=== PATIENT | male | born 1985 | race Caucasian/White ===

== ENCOUNTER 2016-09-20 17:02 | Emergency (ER) | payer SELFPAY ==
[~2016-09-20] VITALS: Ht 170.2 cm; Wt 63.0 kg
[~2016-09-20 17:02] MED LIST: ALPR1 PO; DILA8TAB4 PO
[2016-09-20 17:10] VITALS: BP 126/76; PULSE 90; RESP 16; TEMP 97.8; O2SAT 95
--- NOTE | 2016-09-20 17:53 | PD ---
HPI Chief Complaint: Skin Problem Time Seen by Provider: 17:33 Travel History International Travel<30 days: No Contact w/Intl Traveler<30days: No Traveled to known affect area: No History of Present Illness HPI Patient is a 31-year-old male presents emergency primary for evaluation of a burn to his right long finger. Patient states he was drinking and smoking some marijuana last night and doesn't know exactly how it happened. He only realize he had some pain this morning when he put his hand in the pockets. Denies a fever double pain nausea vomiting diarrhea denies any other atkins. Patient states he has jammed his finger in the past playing basketball and has had limited range of motion of his PIP joint since then. This is been chronic for him for Rai 6 months. [facility] Past Medical History Anxiety: Yes Diminished Hearing: No Musculoskeletal: Yes (BACK PAIN/ CHRONIC NECK PAIN) Social History Alcohol Use: Yes (WEEKLY) Tobacco Use: Yes (1 PPD) Substance Use: Yes (THC DAILY, COCAINE, IV DILAUDID) Allergies-Medications (Allergen,Severity, Reaction): Coded Allergies: No Known Allergies (Verified , 05/27/13) Reported Meds & Prescriptions Reported Meds & Active Scripts Active Review of Systems Except as stated in HPI: all other systems reviewed are Neg Physical Exam Narrative GENERAL: Well-nourished, well-developed patient. SKIN: Warm and dry. There is a second degree burn over the dorsal aspect of the middle phalanx of his long finger on the right hand. Fairly limited approximately 1 cm by half centimeter. HEAD: Normocephalic. EYES: No scleral icterus. No injection or drainage. NECK: Supple, trachea midline. No JVD or lymphadenopathy. CARDIOVASCULAR: Regular rate and rhythm without murmurs, gallops, or rubs. RESPIRATORY: Breath sounds equal bilaterally. No accessory muscle use. GASTROINTESTINAL: Abdomen soft, non-tender, nondistended. MUSCULOSKELETAL: No cyanosis, or edema. There is some mild deformity of his PIP joint on the right finger and is locked in slight flexion. 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 He is unable to completely extend his long finger. No other fingers injured. Cap refill is brisk in all 5 digits. Left hand is normal. BACK: Nontender without obvious deformity. No CVA tenderness. Data Data Last Documented VS Vital Signs Date Time Temp Pulse Resp B/P Pulse Ox O2 Delivery O2 Flow Rate FiO2 09/20/16 17:10 97.8 90 16 126/76 95 Room Air MDM Medical Decision Making Medical Screen Exam Complete: Yes Emergency Medical Condition: Yes Differential Diagnosis Burn, tendon injury unlikely, infection unlikely, cellulitis unlikely. Narrative Course Patient is minor burn to the extensor surface of his right long finger, no indication further management at this time. Discussed symptomatic management home and return to ED criteria. Diagnosis Primary Impression: 2Nd deg burn finger Scripts No Active Prescriptions or Reported Meds Disposition: 01 DISCHARGE HOME Condition: Stable Ever Dinh MD Sep 20, 2016 17:53
== END 2016-09-20 18:02 | disposition home or self-care (01) ==
LOC: PHED 17:02 → PHEFT 18:02
DX: T23.221A Burn of second degree of single right finger (nail) except thumb, initial encounter (principal); F17.210 Nicotine dependence, cigarettes, uncomplicated
CPT/HCPCS: 99283

== ENCOUNTER 2016-11-28 12:36 | Emergency (ER) | payer OTHER ==
[2016-11-28 12:55] VITALS: BP 123/71; PULSE 70; RESP 16; TEMP 98.6; O2SAT 98
[2016-11-28] MEDS ORDERED: SODIUM CHLORIDE 0.9% FLUSH 10 ML FLUSH IVF PRN (13:15)
[2016-11-28 13:38] VITALS: O2SAT 97
[2016-11-28 13:44] LABS: AUTOMATED NEUTROPHIL # 4.4 TH/MM3 (1.8-7.7); BASOPHIL % 0.3 % (0.0-2.0); EOSINOPHIL % 0.3 % (0.0-4.0); HEMATOCRIT 45.5 % (39.0-51.0); HEMO FLAGS DIFF FINAL; LYMPH % 21.8 % (9.0-44.0); LYMPHOCYTE # 1.4 TH/MM3 (1.0-4.8); MEAN CELL VOLUME 87.4 FL (80.0-100.0); MEAN CORPUSCULAR HEMOGLOBIN 29.6 PG (27.0-34.0); MEAN CORPUSCULAR HGB CONC 33.9 % (32.0-36.0); MONO % 6.5 % (0.0-8.0); NEUT % 71.1 % (16.0-70.0); PLATELET COUNT 197 TH/MM3 (150-450); RED BLOOD COUNT 5.21 MIL/MM3 (4.50-5.90); WHITE BLOOD COUNT 6.2 TH/MM3 (4.0-11.0)
[2016-11-28 14:06] LABS: ALT (GPT) 111 U/L (12-78); ANION GAP 7 MEQ/L (5-15); AST (GOT) 77 U/L (15-37); BLOOD UREA NITROGEN 13 MG/DL (7-18); CHLORIDE 104 MEQ/L (98-107); GLOMERULAR FILTRATION RATE 110 ML/MIN (>89); POTASSIUM 4.2 MEQ/L (3.5-5.1); SODIUM (NA) 138 MEQ/L (136-145)
[2016-11-28 14:11] LABS: ALKALINE PHOSPHATASE 67 U/L (45-117); TOTAL BILIRUBIN ADULT 2.4 MG/DL (0.2-1.0)
[2016-11-28 14:13] LABS: CREATINE KINASE 79 U/L (39-308)
--- NOTE | 2016-11-28 14:17 | PD ---
HPI Chief Complaint: Chest Pain Time Seen by Provider: 13:44 Travel History International Travel<30 days: No Contact w/Intl Traveler<30days: No Traveled to known affect area: No History of Present Illness HPI Is a 31-year-old man who presents to the emergency department complaining of chest pain. He states he's been feeling sick for a while. Over the past several days he was getting fevers chills and night sweats. Today he started getting chest pain after being arrested. His a history of active IV drug use, last use this morning. Denies any history of bloodstream infection endocarditis or sepsis. No other complaints. History Past Medical History Narrative Medical Active IV drug use Past Surgical History Surgical History: No Previous Surgery Social History Alcohol Use: Yes (WEEKLY) Tobacco Use: Yes (1 PPD) Allergies-Medications (Allergen,Severity, Reaction): Coded Allergies: No Known Allergies (Verified , 05/27/13) Reported Meds & Prescriptions Reported Meds & Active Scripts Active Review of Systems Except as stated in HPI: all other systems reviewed are Neg Physical Exam Narrative GENERAL: 31-year-old man, looks a little bit unhealthy, but nontoxic. SKIN: Warm, some diaphoresis. No rash or stigmata of endocarditis. HEAD: Atraumatic. Normocephalic. NECK: Trachea midline. No JVD. CARDIOVASCULAR: Regular rate and rhythm. No murmur appreciated. RESPIRATORY: No accessory muscle use. Clear to auscultation. Breath sounds equal bilaterally. GASTROINTESTINAL: Abdomen soft, non-tender, nondistended. Hepatic and splenic margins not palpable. MUSCULOSKELETAL: No obvious deformities. No edema. NEUROLOGICAL: Awake and alert. No obvious cranial nerve deficits. Motor grossly within normal limits. Normal speech. Data Data Last Documented VS Vital Signs Date Time Temp Pulse Resp B/P Pulse Ox O2 Delivery O2 Flow Rate FiO2 11/28/16 15:25 69 16 118/68 97 11/28/16 13:38 Room Air 11/28/16 12:55 98.6 Orders Ckmb (Isoenzyme) Profile (11/28/16 13:14) Complete Blood Count With Diff (11/28/16 13:14) Comprehensive Metabolic Panel (11/28/16 13:14) Troponin I (11/28/16 13:14) Chest, Single Ap (11/28/16 13:14) Ecg Monitoring (11/28/16 13:14) Iv Access Insert/Monitor (11/28/16 13:14) Oximetry (11/28/16 13:14) Sodium Chloride 0.9% Flush (Ns Flush) (11/28/16 13:15) Westergren Sedimentation Rate (11/28/16 13:44) C-Reactive Protein (Crp) (11/28/16 13:44) Blood Culture (11/28/16 13:44) Labs Laboratory Tests Test 11/28/16 11/28/16 13:30 13:45 White Blood Count 6.2 TH/MM3 Red Blood Count 5.21 MIL/MM3 Hemoglobin 15.4 GM/DL Hematocrit 45.5 % Mean Corpuscular Volume 87.4 FL Mean Corpuscular Hemoglobin 29.6 PG Mean Corpuscular Hemoglobin 33.9 % Concent Red Cell Distribution Width 13.0 % Platelet Count 197 TH/MM3 Mean Platelet Volume 7.4 FL Neutrophils (%) (Auto) 71.1 % Lymphocytes (%) (Auto) 21.8 % Monocytes (%) (Auto) 6.5 % Eosinophils (%) (Auto) 0.3 % Basophils (%) (Auto) 0.3 % Neutrophils # (Auto) 4.4 TH/MM3 Lymphocytes # (Auto) 1.4 TH/MM3 Monocytes # (Auto) 0.4 TH/MM3 Eosinophils # (Auto) 0.0 TH/MM3 Basophils # (Auto) 0.0 TH/MM3 CBC Comment DIFF FINAL Differential Comment Erythrocyte Sedimentation Rate 6 mm/hr Sodium Level 138 MEQ/L Potassium Level 4.2 MEQ/L Chloride Level 104 MEQ/L Carbon Dioxide Level 27.0 MEQ/L Anion Gap 7 MEQ/L Blood Urea Nitrogen 13 MG/DL Creatinine 0.82 MG/DL Estimat Glomerular Filtration 110 ML/MIN Rate Random Glucose 96 MG/DL Calcium Level 9.5 MG/DL Total Bilirubin 2.4 MG/DL Aspartate Amino Transf 77 U/L (AST/SGOT) Alanine Aminotransferase 111 U/L (ALT/SGPT) Alkaline Phosphatase 67 U/L Total Creatine Kinase 79 U/L Troponin I LESS THAN 0.02 NG/ML Total Protein 7.9 GM/DL Albumin 3.9 GM/DL C-Reactive Protein 3.68 MG/DL [facility] Medical Decision Making Medical Screen Exam Complete: Yes Emergency Medical Condition: Yes Interpretation(s) LABS: CBC is unremarkable Sedimentation rate is 6 CMP is remarkable for elevated total bili AST and ALT suggestive of hepatitis Troponin negative CRP is 3.68 Differential Diagnosis Chest pain, heart disease, endocarditis, malingering, other Narrative Course Medical decision making 31-year-old man presents to the emergency department with chest pain, and reported subjective chills and sweats and feeling sick for couple days. Certainly at risk for endocarditis. He is under arrest now. We'll check labs, cultures, reassess. FINAL: 31-year-old man, arrested and developed chest pain, as a prodrome of feeling poorly with subjective fevers and chills. White count and inflammatory markers are reassuring. CRP is a little bit elevated. Cultures are pending. Discussed with the patient. I think is safe for discharge, cultures are positive or he has worsening symptoms, we'll call him back to the emergency department. Diagnosis Primary Impression: Chest pain Additional Instructions: Follow-up with your primary doctor in the next 2-4 days. Avoid IV drugs. If blood cultures are positive will call you at the phone number provided. Return to the emergency department for any new or worsening symptoms. Med/Other Pt SpecificInfo: No Change to Meds Scripts No Active Prescriptions or Reported Meds Disposition: 01 DISCHARGE HOME Condition: Stable Gen Calabrese MD November 28, 2016 14:17
--- NOTE | 2016-11-28 14:27 | RADRPT ---
EXAM DATE/TIME: 11/28/2016 13:30 [facility] COMPARISON: CHEST SINGLE AP, September 09, 2013, 8:46. INDICATIONS : Chest pain today, smoker MEDICAL HISTORY : None. SURGICAL HISTORY : None. ENCOUNTER: Initial ACUITY: 1 day PAIN SCORE: 8/10 LOCATION: Bilateral chest FINDINGS: Portable AP view of the chest demonstrates a normal-sized cardiac silhouette. No effusion, consolidat ion, or pneumothorax is visualized. The bones and soft tissues demonstrate no acute abnormality. CONCLUSION: No acute cardiopulmonary abnormality is identified. Francois Abbott MD on November 28, 2016 at 14:25 Board Certified Radiologist. This report was verified electronically.
[2016-11-28 15:25] VITALS: BP 118/68; PULSE 69; RESP 16; O2SAT 97
--- NOTE | 2016-11-29 15:40 | EKG ---
Date Performed: 11/28/2016 Time Performed: 12:51:56 PTAGE: 31 years EKG: Sinus rhythm NORMAL ECG Compared to prior tracing no significant change PREVIOUS TRACING 05/27/2013 13.59.58 DOCTOR: Shannan Sánchez Interpretating Date/Time 11/29/2016 15:39:15
== END 2016-11-28 16:03 | disposition home or self-care (01) ==
LOC: NEPD 12:36
DX: R07.9 Chest pain, unspecified (principal); F17.210 Nicotine dependence, cigarettes, uncomplicated
CPT/HCPCS: 71010; 80053; 82550; 84484; 85025; 85652; 86140; 87040; 93005; 99284

== ENCOUNTER 2017-02-05 19:34 | Emergency (ER) | payer SELFPAY ==
[~2017-02-05] VITALS: Ht 170.2 cm; Wt 61.5 kg
[2017-02-05 19:36] VITALS: BP 129/83; PULSE 88; RESP 18; TEMP 99.2; O2SAT 100
--- NOTE | 2017-02-05 20:05 | PD ---
HPI Chief Complaint: Skin Problem Time Seen by Provider: 20:03 Travel History International Travel<30 days: No Contact w/Intl Traveler<30days: No Traveled to known affect area: No History of Present Illness HPI 31 YO M with PMH of active IVDA presents to the ED for evaluation of 2 day history of pain, redness and swelling of the let wrist. Onset after the patient "popped the vein" while shooting up heroin. He endorses pain with range of motion. He denies fevers, chills, numbness, tingling, weakness of the extremity , previous history of MRSA. No treatment attempted at home. PFSH Past Medical History Anxiety: Yes Diminished Hearing: No Musculoskeletal: Yes (BACK PAIN/ CHRONIC NECK PAIN) Social History Alcohol Use: Yes (WEEKLY) Tobacco Use: Yes (1 PPD) Substance Use: Yes (THC DAILY, COCAINE, IV DILAUDID) Allergies-Medications (Allergen,Severity, Reaction): Coded Allergies: No Known Allergies (Verified , 05/27/13) Reported Meds & Prescriptions Reported Meds & Active Scripts Active Ibuprofen 600 Mg Tab 600 Mg PO Q8HR PRN Keflex (Cephalexin) 500 Mg Cap 500 Mg PO Q6H 10 Days Bactrim DS (Sulfamethoxazole-Trimethoprim) 800-160 Mg Tab 1 Tab PO BID Review of Systems Except as stated in HPI: all other systems reviewed are Neg Physical Exam Narrative GENERAL: Well-nourished, well-developed white male in no acute distress. SKIN: There is an indurated area in the left wrist which measures about 1-2 cm in diameter. No fluctuance, pointing or drainage. There is a zone of inflammation around it and cellulitic to the mid forearm. SKIN: Focused skin assessment warm/dry. Multiple tattoos. Multiple pinpoint areas of induration over the venous system of bilateral arms. HEAD: Normocephalic. EYES: No scleral icterus. No injection or drainage. NECK: Supple, trachea midline. No JVD or lymphadenopathy. CARDIOVASCULAR: Regular rate and rhythm without murmurs, gallops, or rubs. RESPIRATORY: Breath sounds equal bilaterally. No accessory muscle use. GASTROINTESTINAL: Abdomen soft, non-tender, nondistended. MUSCULOSKELETAL: No cyanosis, or edema. Patient retains full, active, painless range of motion of the bilateral upper extremities. BACK: Nontender without obvious deformity. No CVA tenderness. Data Data Last Documented VS Vital Signs Date Time Temp Pulse Resp B/P Pulse Ox O2 Delivery O2 Flow Rate FiO2 02/05/17 19:36 99.2 88 18 129/83 100 Room Air Orders Basic Metabolic Panel (Bmp) (02/05/17 20:10) Complete Blood Count With Diff (02/05/17 20:10) Iv Access Insert/Monitor (02/05/17 20:10) Ketorolac Inj (Toradol Inj) (02/05/17 20:15) Blood Culture (02/05/17 20:51) Lidocaine 1% Inj (50 Ml) (Xylocaine 1% I (02/05/17 21:00) Wound Culture And Gram Stain (02/05/17 20:51) Lidocaine Pf 1% Inj (Xylocaine-Mpf 1% In (02/05/17 21:35) Sulfamet-Trimeth Ds 800-160 Mg (Bactrim (02/05/17 22:00) Cephalexin (Keflex) (02/05/17 22:00) Labs Laboratory Tests Test 02/05/17 21:05 White Blood Count 7.8 TH/MM3 Red Blood Count 5.06 MIL/MM3 Hemoglobin 15.0 GM/DL Hematocrit 44.9 % Mean Corpuscular Volume 88.7 FL Mean Corpuscular Hemoglobin 29.7 PG Mean Corpuscular Hemoglobin 33.5 % Concent Red Cell Distribution Width 13.1 % Platelet Count 203 TH/MM3 Mean Platelet Volume 7.9 FL Neutrophils (%) (Auto) 57.7 % Lymphocytes (%) (Auto) 31.9 % Monocytes (%) (Auto) 8.0 % Eosinophils (%) (Auto) 1.9 % Basophils (%) (Auto) 0.5 % Neutrophils # (Auto) 4.5 TH/MM3 Lymphocytes # (Auto) 2.5 TH/MM3 Monocytes # (Auto) 0.6 TH/MM3 Eosinophils # (Auto) 0.1 TH/MM3 Basophils # (Auto) 0.0 TH/MM3 CBC Comment DIFF FINAL Differential Comment MDM Medical Decision Making Medical Screen Exam Complete: Yes Emergency Medical Condition: Yes Differential Diagnosis abscess versus cellulitis versus thrombophlebitis versus other Narrative Course 31 YO M with PMH of active IVDA presents to the ED for evaluation of 2 day history of pain, redness and swelling of the left wrist. Onset after the patient "popped the vein" while shooting up heroin. He endorses pain with range of motion. He denies fevers, chills, numbness, tingling, weakness of the extremity, previous history of MRSA. Vitals reviewed. Physical exam reveals a nontoxic-appearing white male in no acute distress. There is induration, redness and warmth of the left wrist and cellulitic streaking to the mid forearm. Patient retains full, active ROM of the left upper extremity. Several other puncture wounds consistent with injection sites. I&D was performed. Please see my procedure note for details. Patient was administered IV Toradol. No leukocytosis on CBC. Blood and wound cultures pending. He is prescribed Bactrim and Keflex, first dose was administered in the ED. Prescribed a short course of ibuprofen. He is instructed to return in 2 days for recheck of the wound. He indicated understanding of the instructions and is agreeable with the care plan. He is stable and discharged home. Procedures Procedure Narrative INCISION AND DRAINAGE OF ABSCESS: The area was prepped and was sterilely draped. A subcutaneous wheal of 1% Xylocaine with a total number 2mL was used to anesthetize the area properly. A number 11 scalpel was used to make a [-] - cm incision across the area of the abscess. The abscess was drained, complex loculations were broken down, and irrigated with normal saline. Cultures were obtained. Sterile dressing was applied. Patient advised to return for wound recheck in two days. Diagnosis Primary Impression: Abscess of left arm Additional Impression: Cellulitis of left upper extremity Referrals: Primary Care Physician Patient Instructions: Abscess Incision and Drainage (ED), General Instructions Additional Instructions: Rest, hydrate. Keep the drressing was applied today on the wound for the next 48 hours. Take the antibiotics as they are prescribed, even if your symptoms resolve. 800 milligram ibuprofen up to 3 times a day as needed for pain. Ice applied to the area may also help to reduce pain. Elevating the wrist will reduce throbbing pain. RETURN TO THE ED IN 48 HOURS FOR WOUND RECHECK. Return to the ED for any urgent or emergent medical condition. Med/Other Pt SpecificInfo: Prescription(s) given Scripts Ibuprofen 600 Mg [id number] Mg PO Q8HR PRN (PAIN) #20 TAB Ref 0 Prov:Linda Alexander MD 02/05/17 Cephalexin (Keflex)500 Mg [id number] Mg PO Q6H 10 Days Ref 0 Prov:Linda Alexander MD 02/05/17 Sulfamethoxazole-Trimethoprim (Bactrim DS)800-160 Mg Tab1 Tab PO BID #14 TAB Ref 0 Prov:Linda Alexander MD 02/05/17 Disposition: 01 DISCHARGE HOME Condition: Stable Isabel Chiang Feb 05, 2017 20:04
[2017-02-05] MEDS ORDERED: KETOROLAC TROMETHAMINE 30 MG/ML (IVP) VIAL IVP ONE (20:15)
[2017-02-05] MEDS ORDERED: LIDOCAINE HCL 1% 50 ML VIAL INFIL ONE (21:00)
[2017-02-05] MEDS ORDERED: IBUP-232 PO (21:24)
[2017-02-05] MEDS ORDERED: CEPH-460 PO (21:24)
[2017-02-05] MEDS ORDERED: BACT800T5 PO (21:24)
[2017-02-05] MEDS ORDERED: LIDOCAINE HCL 1% PF 30 ML VIAL ONE (21:35)
[2017-02-05 21:45] LABS: AUTOMATED NEUTROPHIL # 4.5 TH/MM3 (1.8-7.7); BASOPHIL % 0.5 % (0.0-2.0); EOSINOPHIL # 0.1 TH/MM3 (0-0.4); EOSINOPHIL % 1.9 % (0.0-4.0); HEMATOCRIT 44.9 % (39.0-51.0); HEMO FLAGS DIFF FINAL; LYMPH % 31.9 % (9.0-44.0); LYMPHOCYTE # 2.5 TH/MM3 (1.0-4.8); MEAN CELL VOLUME 88.7 FL (80.0-100.0); MEAN CORPUSCULAR HEMOGLOBIN 29.7 PG (27.0-34.0); MEAN CORPUSCULAR HGB CONC 33.5 % (32.0-36.0); NEUT % 57.7 % (16.0-70.0); PLATELET COUNT 203 TH/MM3 (150-450); RED BLOOD COUNT 5.06 MIL/MM3 (4.50-5.90); RED CELL DISTRIBUTION WIDTH 13.1 % (11.6-17.2); WHITE BLOOD COUNT 7.8 TH/MM3 (4.0-11.0)
[2017-02-05] MEDS ORDERED: SULFAMETHOXAZOLE-TRIMETHOPRIM DS 800-160 MG TAB PO ONE (22:00)
[2017-02-05] MEDS ORDERED: CEPHALEXIN MONOHYDRATE 500 MG CAP PO ONE (22:00)
[2017-02-05 22:11] LABS: BICARBONATE 28.7 MEQ/L (21.0-32.0); POTASSIUM 3.9 MEQ/L (3.5-5.1)
== END 2017-02-05 22:21 | disposition home or self-care (01) ==
LOC: NEPE 19:34
DX: L02.414 Cutaneous abscess of left upper limb (principal); L03.114 Cellulitis of left upper limb; F17.200 Nicotine dependence, unspecified, uncomplicated
CPT/HCPCS: 10060; 80048; 85025; 87040; 87070; 96374; 99284; J1885; 87205

== ENCOUNTER 2017-02-09 18:32 | Emergency (ER) | payer SELFPAY ==
[~2017-02-09] VITALS: Ht 170.2 cm; Wt 66.0 kg
[~2017-02-09 18:32] MED LIST changes: -ALPR1 PO; +BACT800T5 PO; +CEPH-460 PO; -DILA8TAB4 PO; +IBUP-232 PO
[2017-02-09 18:34] VITALS: BP 130/75; PULSE 92; RESP 20; TEMP 98.2; O2SAT 99
== END 2017-02-09 21:51 | disposition left against medical advice (07) ==
LOC: NED 18:32
DX: R21 Rash and other nonspecific skin eruption (principal); Z53.21 Procedure and treatment not carried out due to patient leaving prior to being seen by health care provider
CPT/HCPCS: 99281